=== PATIENT | female | born 1970 | race African-American/Black ===

== ENCOUNTER 2018-07-03 23:01 | Emergency (ER) | payer MEDICARE, MEDICAID ==
[~2018-07-03] VITALS: Ht 162.6 cm; Wt 96.8 kg
[~2018-07-03 23:01] MED LIST: CEPH500C5 PO
[2018-07-03] MEDS ORDERED: TETanus/Pertussis (Acell)/Diphther VAC/PF (Tdap-Adult) 0.5ml syringe IM ONE (23:50)
[2018-07-03] MEDS ORDERED: bacitracin 15gm ointment TP ONE (23:50)
[2018-07-04 00:12] VITALS: BP 152/83
== END 2018-07-04 00:15 | disposition home or self-care (01) ==
LOC: ER 23:01
DX: L02.811 Cutaneous abscess of head [any part, except face] (principal); I10 Essential (primary) hypertension; F17.200 Nicotine dependence, unspecified, uncomplicated; E11.9 Type 2 diabetes mellitus without complications; Z88.8 Allergy status to other drugs, medicaments and biological substances
CPT/HCPCS: 10060; 90471; 90715; 99283

== ENCOUNTER 2018-07-18 23:36 | Emergency (ER) | payer MEDICARE, MEDICAID ==
[~2018-07-18] VITALS: Ht 162.6 cm; Wt 85.5 kg
[2018-07-18] MEDS ORDERED: normal saline 1000ML IV soln IVB ONE (23:55)
[2018-07-18] MEDS ORDERED: ketorolac tromethamine 15mg/ml inj. IV ONE (23:55)
[2018-07-18] MEDS ORDERED: ondansetron/PF 4mg/2ml inj IV ONE (23:55)
[2018-07-19 00:18] LABS: CLARITY,URINE CLEAR (Clear); COLOR,URINE YELLOW (Yellow); GLUCOSE, URINE >=1000 mg/dl (Neg); KETONES,URINE NEGATIVE (Neg); LEUKOCYTE ESTERASE ,URINE NEGATIVE (Neg); NITRITES, URINE NEGATIVE (Neg); OCCULT BLOOD,URINE SMALL (Neg); PROTEIN,URINE NEGATIVE (Neg); UROBILINOGEN,URINE 0.2 E.U/dL (0.2-1.0)
[2018-07-19 00:20] LABS: URINE HCG NEGATIVE (NEG)
[2018-07-19 00:23] LABS: BASOPHILS # (AUTO) 0.1 X10'3 (0-0.2); BASOPHILS % (AUTO) 1.2 % (0-1); EOSINOPHILS # (AUTO) 0.1 X10'3 (0-0.9); EOSINOPHILS % (AUTO) 2.4 % (0-6); HEMATOCRIT 37.4 % (35.0-45.0); HEMOGLOBIN 12.3 g/dl (12.0-16.0); LYMPHOCYTES # (AUTO) 2.2 X10'3 (1.1-4.8); LYMPHOCYTES % (AUTO) 35.5 % (21-51); MEAN CORPUSCULAR HGB CONC 32.7 % (33.0-36.5); MEAN CORPUSCULAR VOLUME 85.5 FL (78-98); MEAN PLATELET VOLUME 8.3 FL (7.4-10.4); MONOCYTES # (AUTO) 0.3 X10'3 (0-0.9); MONOCYTES % (AUTO) 4.6 % (2-12); NEUTROPHILS # (AUTO) 3.4 X10'3 (1.8-7.7); NEUTROPHILS % (AUTO) 56.3 % (42-75); PLATELET COUNT 349 X10'3 (140-440); RED BLOOD COUNT 4.38 X10'6 (4.20-5.60); RED CELL DISTRIBUTION WIDTH 13.1 % (11.5-14.5); WHITE BLOOD COUNT 6.1 X10'3 (4.5-11.0)
[2018-07-19 00:24] LABS: UA COLLECTION TYPE CLN CATCH MIDSTREAM
[2018-07-19 00:25] LABS: BACTERIA,URINE FEW /HPF (Neg); SQUAMOUS EPITHELIAL CELL,UR FEW /LPF (FEW); WBC,URINE 0-4 /HPF (0-4)
[2018-07-19 00:32] LABS: ALANINE AMINOTRANSFERASE 37 U/L (12-78); ALBUMIN 3.3 G/DL (3.4-5.0); ALBUMIN/GLOBULIN RATIO 0.8 (1.1-1.5); ALKALINE PHOSPHATASE 158 IU/L (46-116); ANION GAP 9 (8-16); ASPARTATE AMINO TRANSFERASE 17 U/L (10-37); BILIRUBIN,TOTAL 0.1 MG/DL (0.1-1.0); CALCIUM 8.3 MG/DL (8.5-10.1); CHLORIDE 103 MMOL/L (99-107); CREATININE 1.22 MG/DL (0.40-0.90); GLUCOSE 310 MG/DL (70-104); LIPASE 232 U/L (73-393); SODIUM 140 MMOL/L (135-145); TOTAL CARBON DIOXIDE 28.5 MMOL/L (24-32); TOTAL PROTEIN 7.6 G/DL (6.4-8.2); eGFR 57 ML/MIN
[2018-07-19 00:38] LABS: BLOOD UREA NITROGEN 16 MG/DL (7-18); BUN/CREATININE RATIO 13.1 (6.6-38.0)
[2018-07-19 00:39] LABS: POTASSIUM 4.2 MMOL/L (3.5-5.1)
[2018-07-19] MEDS ORDERED: HYDR-4353 PO (01:00)
[2018-07-19] MEDS ORDERED: ONDA4TAB9 SL (01:00)
[2018-07-19] MEDS ORDERED: KETO10TA2 PO (01:00)
[2018-07-19 01:08] VITALS: BP 160/93
== END 2018-07-19 01:09 | disposition home or self-care (01) ==
LOC: ER 23:37
DX: N20.0 Calculus of kidney (principal); D25.9 Leiomyoma of uterus, unspecified; E11.65 Type 2 diabetes mellitus with hyperglycemia; M51.27 Other intervertebral disc displacement, lumbosacral region; N23 Unspecified renal colic; R19.7 Diarrhea, unspecified; I10 Essential (primary) hypertension; Z88.8 Allergy status to other drugs, medicaments and biological substances; Z90.49 Acquired absence of other specified parts of digestive tract; Z98.890 Other specified postprocedural states
CPT/HCPCS: 36415; 74176; 80053; 81001; 81025; 83690; 85025; 96361; 96374; 96375; 99285; J1885; J2405

== ENCOUNTER 2018-08-07 07:07 | Emergency (ER) | payer MEDICARE, MEDICAID ==
[~2018-08-07] VITALS: Ht 162.6 cm; Wt 84.0 kg
[~2018-08-07 07:07] MED LIST changes: +HYDR-4353 PO; +KETO10TA2 PO; +ONDA4TAB9 SL
[2018-08-07] MEDS ORDERED: CLIN300C85 PO (08:09)
[2018-08-07] MEDS ORDERED: clindamycin 150mg capsule PO ONE (08:10)
[2018-08-07] MEDS ORDERED: diphenhydrAMINE 25mg capsule PO ONE (08:10)
[2018-08-07 08:18] VITALS: BP 163/95
== END 2018-08-07 08:20 | disposition home or self-care (01) ==
LOC: ER 07:08
DX: L73.2 Hidradenitis suppurativa (principal); I10 Essential (primary) hypertension; E11.9 Type 2 diabetes mellitus without complications; Z87.442 Personal history of urinary calculi; Z90.49 Acquired absence of other specified parts of digestive tract; Z98.890 Other specified postprocedural states; Z88.8 Allergy status to other drugs, medicaments and biological substances
CPT/HCPCS: 99283; Q0163

== ENCOUNTER 2018-10-17 09:11 | Day surgery (SDC) | payer MEDICARE, MEDICAID ==
[2018-10-02 12:16] LABS: BASOPHILS % (AUTO) 0.4 % (0-1); EOSINOPHILS # (AUTO) 0.1 X10'3 (0-0.9); EOSINOPHILS % (AUTO) 2.7 % (0-6); LYMPHOCYTES # (AUTO) 2.2 X10'3 (1.1-4.8); LYMPHOCYTES % (AUTO) 42.3 % (21-51); MEAN CORPUSCULAR HEMOGLOBIN 27.8 PG (27.0-31.0); MEAN CORPUSCULAR HGB CONC 31.9 % (33.0-36.5); MEAN CORPUSCULAR VOLUME 87.3 FL (78-98); MONOCYTES # (AUTO) 0.3 X10'3 (0-0.9); MONOCYTES % (AUTO) 6.7 % (2-12); NEUTROPHILS # (AUTO) 2.5 X10'3 (1.8-7.7); NEUTROPHILS % (AUTO) 47.9 % (42-75); PRE OP HEMOGLOBIN 12.7 g/dL (12.0-16.0); PRE OP PLATELET COUNT 380 X10'3 (140-440); RED BLOOD COUNT 4.58 X10'6 (4.20-5.60); RED CELL DISTRIBUTION WIDTH 13.1 % (11.5-14.5)
[2018-10-02 12:30] LABS: ALBUMIN 3.5 G/DL (3.4-5.0); ALBUMIN/GLOBULIN RATIO 0.8 (1.1-1.5); ALKALINE PHOSPHATASE 139 IU/L (46-116); BLOOD UREA NITROGEN 12 MG/DL (7-18); BUN/CREATININE RATIO 11.7 (6.6-38.0); CALCIUM 9.1 MG/DL (8.5-10.1); CHLORIDE 103 MMOL/L (99-107); CREATININE 1.03 MG/DL (0.40-0.90); PRE OP ALT 30 U/L (30-65); PRE OP ANION GAP 7 (8-16); PRE OP AST 19 U/L (10-37); PRE OP BILIRUB, TOTAL 0.2 MG/DL (0.0-1.0); PRE OP POTASSIUM 3.8 MMOL/L (3.4-5.1); PRE OP SODIUM 140 MMOL/L (135-145); TOTAL CARBON DIOXIDE 29.8 MMOL/L (24-32); TOTAL PROTEIN 7.9 G/DL (6.4-8.2); eGFR 69 ML/MIN
[2018-10-02 12:31] LABS: PRE OP GLUCOSE 210 MG/DL (70-104)
[~2018-10-17] VITALS: Ht 162.6 cm; Wt 94.7 kg
[~2018-10-17 09:11] MED LIST changes: -CEPH500C5 PO; +CYCL-1 PO; +GLIP5TAB13 PO; +HYDR-3973 PO; -HYDR-4353 PO; +INSU100V9 SQ; -KETO10TA2 PO; +LIRA0.6P2 SQ; +LISI2.5T2 PO; +LORA-512 PO; -ONDA4TAB9 SL; +VANCOMYCIN INJ 1000 MG in NORMAL SALINE 250ml IV.SOLN IV ONE; +cefazolin/dext.iso 2gm/100 ML IV ONE; +famotidine 20mg tablet PO ONE; +ringers solution, lacted 1,000 ML IV SCH
[2018-10-17] MEDS ORDERED: LIDOcaine 1% (10mg/ml) 2ml vial ONE (09:24)
[2018-10-17 09:30] VITALS: BP 148/96
[2018-10-17] MEDS ORDERED: fentaNYL/PF 50MCG/1 ML 2ML syringe ONE (10:25)
[2018-10-17] MEDS ORDERED: MIDAZolam 1mg/ml 10ml vial ONE (10:25)
[2018-10-17] MEDS ORDERED: ketorolac trometh. 30mg/ml inj. ONE (10:26)
--- NOTE | 2018-10-17 10:30 | NUR ---
UNABLE TO START IV. DR. BECK AWARE. TO OR FOR IV START.
[2018-10-17 10:56] VITALS: BP 148/96
[2018-10-17] MEDS ORDERED: methylPREDNISolone sod succ 125mg/2ml vial ONE (11:06)
[2018-10-17] MEDS ORDERED: BUPIVAcaine/PF 2.5mg/ml (0.25%) 10ml vial ONE (11:06)
[2018-10-17] MEDS ORDERED: labetalol 20mg/4ml (5mg/ml) syringe IV PRN (11:25)
[2018-10-17] MEDS ORDERED: morphine 4 MG/ML inj SYRINge IV PRN ×2 (11:25)
[2018-10-17] MEDS ORDERED: ondansetron/PF 4mg/2ml inj IV PRN (11:25)
[2018-10-17] MEDS ORDERED: fentaNYL/PF 50MCG/1 ML 2ML syringe IV PRN ×2 (11:25)
[2018-10-17] MEDS ORDERED: hydrALAZINE 20mg/ml inj. IV PRN (11:25)
[2018-10-17] MEDS ORDERED: ringers solution, lacted 1,000 ML IV SCH (11:25)
[2018-10-17 12:04] VITALS: BP 111/88
--- NOTE | 2018-10-17 12:04 | NUR ---
Received from OR via [facility] , accompanied by Anesthesiologist EBONY and report given by Anesthesiolgist. PATIENT WITH MARYAN WRAP TO LEFT WRIST THAT IS CDI. DENIES PAIN. + CAP REFILL AND MOVEMENT. PWD. 24G PIV IN RIGHT FOOT. Addendum: 10/17/18 at 1216 by Curtis Lipscomb RN, RN Amended: Links added.
[2018-10-17 12:14] VITALS: BP 139/90
--- NOTE | 2018-10-17 12:21 | NUR ---
Rupa RODRIGUES IN RR Addendum: 10/17/18 at 1222 by Curtis Lipscomb RN RN Amended: Links added.
[2018-10-17 12:24] VITALS: BP 124/86
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
== END 2018-10-17 12:34 | disposition home or self-care (01) ==
LOC: PAS 09:11
PROVIDERS: ATTEND Orthopaedic Surgery
DX: S56.312A Strain of extensor or abductor muscles, fascia and tendons of left thumb at forearm level, initial encounter (principal); M65.4 Radial styloid tenosynovitis [de Quervain]; M65.312 Trigger thumb, left thumb; M65.322 Trigger finger, left index finger; I10 Essential (primary) hypertension; K21.9 Gastro-esophageal reflux disease without esophagitis; E78.5 Hyperlipidemia, unspecified; E66.01 Morbid (severe) obesity due to excess calories; J30.2 Other seasonal allergic rhinitis; E11.51 Type 2 diabetes mellitus with diabetic peripheral angiopathy without gangrene; E11.29 Type 2 diabetes mellitus with other diabetic kidney complication; G89.29 Other chronic pain; E11.42 Type 2 diabetes mellitus with diabetic polyneuropathy; Z88.6 Allergy status to analgesic agent; Z87.891 Personal history of nicotine dependence; Z79.82 Long term (current) use of aspirin; Z87.442 Personal history of urinary calculi; Z88.5 Allergy status to narcotic agent; Z68.35 Body mass index [BMI] 35.0-35.9, adult; Z79.4 Long term (current) use of insulin; Z79.891 Long term (current) use of opiate analgesic; Z90.49 Acquired absence of other specified parts of digestive tract; Z88.8 Allergy status to other drugs, medicaments and biological substances; Z98.890 Other specified postprocedural states; Z79.899 Other long term (current) drug therapy; Z83.3 Family history of diabetes mellitus; X58.XXXA Exposure to other specified factors, initial encounter; Y93.89 Activity, other specified; Y92.89 Other specified places as the place of occurrence of the external cause; Y99.8 Other external cause status
CPT/HCPCS: 25000; 25270; 26055; 36415; 80053; 82948; 85025; 93005; A6222; A6449; J0690; J1885; J2250; J2930; J3010; J3370; J3490; A7000; J7120

== ENCOUNTER 2018-10-24 03:22 | Outpatient (CLI) | payer MEDICARE, MEDICAID ==
[~2018-10-24 03:22] MED LIST changes: -VANCOMYCIN INJ 1000 MG in NORMAL SALINE 250ml IV.SOLN IV ONE; -cefazolin/dext.iso 2gm/100 ML IV ONE; -famotidine 20mg tablet PO ONE; -ringers solution, lacted 1,000 ML IV SCH
== END 2018-10-24 23:59 | disposition home or self-care (01) ==
LOC: DIABETIC 03:22
PROVIDERS: ATTEND Family Medicine
DX: E11.65 Type 2 diabetes mellitus with hyperglycemia (principal); I10 Essential (primary) hypertension; Z79.4 Long term (current) use of insulin; Z88.5 Allergy status to narcotic agent; Z88.6 Allergy status to analgesic agent; Z88.8 Allergy status to other drugs, medicaments and biological substances
CPT/HCPCS: G0108

== ENCOUNTER 2019-05-19 13:59 | Emergency (ER) | payer MEDICARE, MEDICAID ==
[~2019-05-19] VITALS: Ht 162.6 cm; Wt 96.8 kg
[2019-05-19 15:12] LABS: BASOPHILS # (AUTO) 0.1 X10'3 (0-0.2); BASOPHILS % (AUTO) 1.2 % (0-1); EOSINOPHILS # (AUTO) 0.1 X10'3 (0-0.9); EOSINOPHILS % (AUTO) 2.3 % (0-6); HEMATOCRIT 37.6 % (35.0-45.0); HEMOGLOBIN 12.5 g/dl (12.0-16.0); LYMPHOCYTES # (AUTO) 2.2 X10'3 (1.1-4.8); LYMPHOCYTES % (AUTO) 35.2 % (21-51); MEAN CORPUSCULAR HEMOGLOBIN 28.7 PG (27.0-31.0); MEAN CORPUSCULAR HGB CONC 33.3 g/dL (33.0-36.5); MEAN CORPUSCULAR VOLUME 86.3 FL (78-98); MEAN PLATELET VOLUME 7.2 FL (7.4-10.4); MONOCYTES # (AUTO) 0.4 X10'3 (0-0.9); MONOCYTES % (AUTO) 6.8 % (2-12); NEUTROPHILS # (AUTO) 3.4 X10'3 (1.8-7.7); NEUTROPHILS % (AUTO) 54.5 % (42-75); PLATELET COUNT 345 X10'3 (140-440); RED BLOOD COUNT 4.36 X10'6 (4.20-5.60); RED CELL DISTRIBUTION WIDTH 14.1 % (11.5-14.5); WHITE BLOOD COUNT 6.2 X10'3 (4.5-11.0)
[2019-05-19 15:26] LABS: ALANINE AMINOTRANSFERASE 29 U/L (12-78); ALBUMIN 3.4 G/DL (3.4-5.0); ALBUMIN/GLOBULIN RATIO 0.8 (1.1-1.5); ALKALINE PHOSPHATASE 159 IU/L (46-116); ANION GAP 10 (8-16); ASPARTATE AMINO TRANSFERASE 18 U/L (10-37); BILIRUBIN,TOTAL 0.2 MG/DL (0.1-1.0); BLOOD UREA NITROGEN 11 MG/DL (7-18); BUN/CREATININE RATIO 10.1 (6.6-38.0); CALCIUM 8.9 MG/DL (8.5-10.1); CHLORIDE 107 MMOL/L (99-107); CREATININE 1.09 MG/DL (0.40-0.90); GLUCOSE 207 MG/DL (70-104); POTASSIUM 3.4 MMOL/L (3.5-5.1); SODIUM 144 MMOL/L (135-145); TOTAL CARBON DIOXIDE 27.5 MMOL/L (24-32); TOTAL PROTEIN 7.6 G/DL (6.4-8.2); eGFR 64 ML/MIN
[2019-05-19 15:43] LABS: PARTIAL THROMBOPLASTIN TIME 29 SECONDS (22-32)
[2019-05-19 16:12] VITALS: BP 132/87
== END 2019-05-19 16:14 | disposition home or self-care (01) ==
LOC: ER 14:00
DX: R00.0 Tachycardia, unspecified (principal); I10 Essential (primary) hypertension; E11.9 Type 2 diabetes mellitus without complications; Z87.442 Personal history of urinary calculi; Z90.49 Acquired absence of other specified parts of digestive tract; Z98.890 Other specified postprocedural states; Z88.5 Allergy status to narcotic agent; Z88.8 Allergy status to other drugs, medicaments and biological substances; Z79.4 Long term (current) use of insulin; Z79.899 Other long term (current) drug therapy
CPT/HCPCS: 36415; 71045; 80053; 84484; 85025; 85610; 85730; 93005; 99284

== ENCOUNTER 2019-12-31 22:53 | Emergency (ER) | payer MEDICARE, MEDICAID ==
[~2019-12-31] VITALS: Ht 162.6 cm; Wt 95.0 kg
[2019-12-31] MEDS ORDERED: ketorolac tromethamine 15mg/ml inj. IV ONE (23:10)
[2019-12-31] MEDS ORDERED: normal saline 1000ML IV soln IVB ONE (23:10)
[2019-12-31] MEDS ORDERED: ondansetron/PF 4mg/2ml inj IV ONE (23:10)
[2019-12-31 23:30] LABS: BASOPHILS % (AUTO) 0.6 % (0-1); EOSINOPHILS # (AUTO) 0.2 X10'3 (0-0.9); EOSINOPHILS % (AUTO) 3.8 % (0-6); HEMATOCRIT 39.6 % (35.0-45.0); LYMPHOCYTES # (AUTO) 2.4 X10'3 (1.1-4.8); LYMPHOCYTES % (AUTO) 39.7 % (21-51); MEAN CORPUSCULAR HEMOGLOBIN 28.1 PG (27.0-31.0); MEAN CORPUSCULAR HGB CONC 32.7 g/dL (33.0-36.5); MEAN CORPUSCULAR VOLUME 85.9 FL (78-98); MEAN PLATELET VOLUME 7.9 FL (7.4-10.4); MONOCYTES # (AUTO) 0.6 X10'3 (0-0.9); MONOCYTES % (AUTO) 9.4 % (2-12); NEUTROPHILS # (AUTO) 2.8 X10'3 (1.8-7.7); NEUTROPHILS % (AUTO) 46.5 % (42-75); PLATELET COUNT 342 X10'3 (140-440); RED BLOOD COUNT 4.61 X10'6 (4.20-5.60); RED CELL DISTRIBUTION WIDTH 14.1 % (11.5-14.5); WHITE BLOOD COUNT 6.1 X10'3 (4.5-11.0)
[2019-12-31 23:36] LABS: ALANINE AMINOTRANSFERASE 31 U/L (12-78); ALBUMIN 3.7 G/DL (3.4-5.0); ALBUMIN/GLOBULIN RATIO 0.8 (1.1-1.5); ALKALINE PHOSPHATASE 164 IU/L (46-116); ANION GAP 6 (8-16); ASPARTATE AMINO TRANSFERASE 28 U/L (10-37); BILIRUBIN,TOTAL 0.2 MG/DL (0.1-1.0); BLOOD UREA NITROGEN 18 MG/DL (7-18); BUN/CREATININE RATIO 15.1 (6.6-38.0); CALCIUM 9.5 MG/DL (8.5-10.1); CHLORIDE 104 MMOL/L (99-107); CREATININE 1.19 MG/DL (0.40-0.90); GLUCOSE 170 MG/DL (70-104); POTASSIUM 3.7 MMOL/L (3.5-5.1); SODIUM 141 MMOL/L (135-145); TOTAL CARBON DIOXIDE 31.1 MMOL/L (24-32); TOTAL PROTEIN 8.5 G/DL (6.4-8.2); eGFR 58 ML/MIN
[2019-12-31 23:50] LABS: CLARITY,URINE CLEAR (Clear); COLOR,URINE STRAW (Yellow); GLUCOSE, URINE 100 mg/dl (Neg); KETONES,URINE NEGATIVE (Neg); LEUKOCYTE ESTERASE ,URINE NEGATIVE (Neg); NITRITES, URINE NEGATIVE (Neg); OCCULT BLOOD,URINE SMALL (Neg); PROTEIN,URINE 100 mg/dl (Neg); UROBILINOGEN,URINE 0.2 E.U/dL (0.2-1.0)
[2020-01-01 00:06] LABS: UA COLLECTION TYPE CLN CATCH MIDSTREAM
[2020-01-01 00:08] LABS: BACTERIA,URINE NONE SEEN /HPF (Neg); SQUAMOUS EPITHELIAL CELL,UR FEW /LPF (FEW); WBC,URINE NONE SEEN /HPF (0-4)
[2020-01-01] MEDS ORDERED: IBUP-1985 PO (00:25)
[2020-01-01] MEDS ORDERED: FLO0.4C PO (00:25)
[2020-01-01 00:36] VITALS: BP 153/66
== END 2020-01-01 00:38 | disposition home or self-care (01) ==
LOC: ER 22:54
DX: N13.2 Hydronephrosis with renal and ureteral calculous obstruction (principal); R11.2 Nausea with vomiting, unspecified; I10 Essential (primary) hypertension; E11.9 Type 2 diabetes mellitus without complications; Z90.49 Acquired absence of other specified parts of digestive tract; Z98.890 Other specified postprocedural states; Z88.8 Allergy status to other drugs, medicaments and biological substances; Z88.6 Allergy status to analgesic agent; Z88.5 Allergy status to narcotic agent; Z79.4 Long term (current) use of insulin
CPT/HCPCS: 36415; 74176; 80053; 81001; 85025; 93005; 96361; 96374; 96375; 99285; J1885; J2405; J7030; 81003

== ENCOUNTER 2020-11-03 09:49 | Emergency (ER) | payer MEDICARE, MEDICAID ==
[~2020-11-03] VITALS: Ht 162.6 cm; Wt 96.2 kg
[~2020-11-03 09:49] MED LIST changes: +IBUP-1985 PO
--- NOTE | 2020-11-03 10:40 | NUR ---
PT TO XRAY
[2020-11-03 11:32] LABS: ALANINE AMINOTRANSFERASE 37 U/L (12-78); ALBUMIN 3.6 G/DL (3.4-5.0); ALBUMIN/GLOBULIN RATIO 0.8 (1.1-1.5); ALKALINE PHOSPHATASE 140 IU/L (46-116); ANION GAP 8 (8-16); ASPARTATE AMINO TRANSFERASE 32 U/L (10-37); BILIRUBIN,TOTAL 0.2 MG/DL (0.1-1.0); BLOOD UREA NITROGEN 16 MG/DL (7-18); BUN/CREATININE RATIO 16.7 (6.6-38.0); CALCIUM 9.4 MG/DL (8.5-10.1); CHLORIDE 105 MMOL/L (99-107); CREATININE 0.96 MG/DL (0.40-0.90); GLUCOSE 115 MG/DL (70-104); POTASSIUM 4.3 MMOL/L (3.5-5.1); SODIUM 142 MMOL/L (135-145); TOTAL CARBON DIOXIDE 28.7 MMOL/L (24-32); eGFR 74 ML/MIN
[2020-11-03 11:38] LABS: BASOPHILS % (AUTO) 0.7 % (0-1); EOSINOPHILS # (AUTO) 0.2 X10'3 (0-0.9); HEMATOCRIT 41.9 % (35.0-45.0); LYMPHOCYTES # (AUTO) 1.7 X10'3 (1.1-4.8); LYMPHOCYTES % (AUTO) 32.6 % (21-51); MEAN CORPUSCULAR HEMOGLOBIN 29.1 PG (27.0-31.0); MEAN CORPUSCULAR HGB CONC 33.3 g/dL (33.0-36.5); MEAN CORPUSCULAR VOLUME 87.4 FL (78-98); MEAN PLATELET VOLUME 8.2 FL (7.4-10.4); MONOCYTES # (AUTO) 0.4 X10'3 (0-0.9); MONOCYTES % (AUTO) 8.4 % (2-12); NEUTROPHILS # (AUTO) 2.9 X10'3 (1.8-7.7); NEUTROPHILS % (AUTO) 55.3 % (42-75); PLATELET COUNT 341 X10'3 (140-440); RED BLOOD COUNT 4.79 X10'6 (4.20-5.60); RED CELL DISTRIBUTION WIDTH 13.6 % (11.5-14.5); WHITE BLOOD COUNT 5.3 X10'3 (4.5-11.0)
[2020-11-03] MEDS ORDERED: iohexol 300mg/ml 100ml inj. ONE (11:42)
--- NOTE | 2020-11-03 12:10 | NUR ---
PT BACK FROM CT
[2020-11-03] MEDS ORDERED: ondansetron/PF 4mg/2ml inj IV ONE (12:25)
[2020-11-03] MEDS ORDERED: HYDROcodone/acetaminophen 10/325mg tab PO ONE (12:25)
--- NOTE | 2020-11-03 12:31 | NUR ---
PT C/O LEFT HIP PAIN, DR. RAMOS MADE AWARE, RECEIVED VERBAL ORDERS FOR 4MG ZOFRAN IV PUSH, AND NORCO 10MG PO. PT STATES SHE HAS HAD NORCO BEFORE AND HAS NO REACTION TO THE MED.
[2020-11-03] MEDS ORDERED: MESSAGE TO PHARMACY PO NR (12:40)
[2020-11-03 13:11] VITALS: BP 135/79
== END 2020-11-03 13:13 | disposition home or self-care (01) ==
LOC: ER 09:49
DX: S70.11XA Contusion of right thigh, initial encounter (principal); S50.01XA Contusion of right elbow, initial encounter; M54.5 Low back pain; M25.552 Pain in left hip; R10.30 Lower abdominal pain, unspecified; I10 Essential (primary) hypertension; E11.9 Type 2 diabetes mellitus without complications; Z87.442 Personal history of urinary calculi; Z90.49 Acquired absence of other specified parts of digestive tract; Z98.890 Other specified postprocedural states; Z72.89 Other problems related to lifestyle; Z88.8 Allergy status to other drugs, medicaments and biological substances; Z88.5 Allergy status to narcotic agent; Z88.6 Allergy status to analgesic agent; Z79.4 Long term (current) use of insulin; Z79.899 Other long term (current) drug therapy; X58.XXXA Exposure to other specified factors, initial encounter; Y93.89 Activity, other specified; Y92.89 Other specified places as the place of occurrence of the external cause; Y99.8 Other external cause status
CPT/HCPCS: 36415; 73502; 74177; 80053; 85025; 85610; 96374; 99285; J2405; Q9967

== ENCOUNTER → 2022-06-27 | Emergency (ER) | payer BC, MEDICAID ==
[~2022-06-27] VITALS: Ht 162.6 cm; Wt 96.4 kg
[~2022-06-27] MED LIST changes: +LISI2.5T14 PO; -LISI2.5T2 PO
[2022-06-27 16:10] VITALS: BP 180/99
== END | disposition home or self-care (01) ==
LOC: ER 15:06
DX: M79.605 Pain in left leg (principal); M79.662 Pain in left lower leg; I10 Essential (primary) hypertension; E11.9 Type 2 diabetes mellitus without complications; Z87.442 Personal history of urinary calculi; Z90.49 Acquired absence of other specified parts of digestive tract; Z98.890 Other specified postprocedural states; Z72.89 Other problems related to lifestyle; Z88.6 Allergy status to analgesic agent; Z88.5 Allergy status to narcotic agent; Z88.8 Allergy status to other drugs, medicaments and biological substances; Z79.4 Long term (current) use of insulin; Z79.899 Other long term (current) drug therapy
CPT/HCPCS: 93005; 99283

== ENCOUNTER 2023-03-06 09:46 | Emergency (ER) | payer BC, MEDICAID ==
[~2023-03-06] VITALS: Ht 162.6 cm; Wt 90.9 kg
[2023-03-06 09:48] VITALS: BP 182/90
[2023-03-06] MEDS ORDERED: ONDA4TAB12 PO (10:49)
[2023-03-06] MEDS ORDERED: AMOX-117 PO (10:49)
== END 2023-03-06 10:54 | disposition home or self-care (01) ==
LOC: ER 09:46
DX: J02.9 Acute pharyngitis, unspecified (principal); J40 Bronchitis, not specified as acute or chronic; R11.2 Nausea with vomiting, unspecified; I10 Essential (primary) hypertension; E11.9 Type 2 diabetes mellitus without complications; Z88.5 Allergy status to narcotic agent; Z88.8 Allergy status to other drugs, medicaments and biological substances; Z90.49 Acquired absence of other specified parts of digestive tract
CPT/HCPCS: 99283

== ENCOUNTER 2023-04-19 21:38 | Emergency (ER) | payer BC, MEDICAID ==
[~2023-04-19] VITALS: Ht 162.6 cm; Wt 94.4 kg
[~2023-04-19 21:38] MED LIST changes: +ONDA4TAB12 PO
[2023-04-19 22:58] LABS: BASOPHILS % (AUTO) 0.4 % (0-1); EOSINOPHILS # (AUTO) 0.1 X10'3 (0-0.9); EOSINOPHILS % (AUTO) 1.7 % (0-6); HEMATOCRIT 42.5 % (35.0-45.0); HEMOGLOBIN 14.3 g/dl (12.0-16.0); LYMPHOCYTES % (AUTO) 25.6 % (21-51); MEAN CORPUSCULAR HEMOGLOBIN 29.4 PG (27.0-31.0); MEAN CORPUSCULAR HGB CONC 33.5 g/dL (33.0-36.5); MEAN CORPUSCULAR VOLUME 87.7 FL (78-98); MEAN PLATELET VOLUME 7.5 FL (7.4-10.4); MONOCYTES # (AUTO) 0.4 X10'3 (0-0.9); MONOCYTES % (AUTO) 5.5 % (2-12); NEUTROPHILS # (AUTO) 5.1 X10'3 (1.8-7.7); NEUTROPHILS % (AUTO) 66.8 % (42-75); PLATELET COUNT 346 X10'3 (140-440); RED BLOOD COUNT 4.85 X10'6 (4.20-5.60); WHITE BLOOD COUNT 7.7 X10'3 (4.5-11.0)
[2023-04-19 23:00] LABS: CLARITY,URINE CLEAR (Clear); COLOR,URINE STRAW (Yellow); GLUCOSE, URINE >=1000 mg/dl (Neg); KETONES,URINE NEGATIVE (Neg); LEUKOCYTE ESTERASE ,URINE NEGATIVE (Neg); NITRITES, URINE NEGATIVE (Neg); OCCULT BLOOD,URINE SMALL (Neg); PROTEIN,URINE 100 mg/dl (Neg); UROBILINOGEN,URINE 0.2 E.U/dL (0.2-1.0)
[2023-04-19 23:07] LABS: UA COLLECTION TYPE CLN CATCH MIDSTREAM
[2023-04-19 23:08] LABS: BACTERIA,URINE NONE SEEN /HPF (Neg); RBC,URINE 20-50 /HPF (0-2); SQUAMOUS EPITHELIAL CELL,UR MODERATE /LPF (FEW)
[2023-04-19 23:09] LABS: WBC,URINE 0-4 /HPF (0-4)
[2023-04-19 23:11] LABS: ALANINE AMINOTRANSFERASE 36 U/L (12-78); ALBUMIN 3.8 G/DL (3.4-5.0); ALBUMIN/GLOBULIN RATIO 0.8 (1.1-1.5); ALKALINE PHOSPHATASE 142 IU/L (46-116); ANION GAP 9 (8-16); ASPARTATE AMINO TRANSFERASE 18 U/L (10-37); BILIRUBIN,TOTAL 0.3 MG/DL (0.1-1.0); BLOOD UREA NITROGEN 14 MG/DL (7-18); BUN/CREATININE RATIO 12.5 (10.0-20.0); CALCIUM 9.4 MG/DL (8.5-10.1); CHLORIDE 100 MMOL/L (99-107); CREATININE 1.12 MG/DL (0.40-0.90); GLUCOSE 319 MG/DL (70-104); LIPASE 372 U/L (73-393); POTASSIUM 3.9 MMOL/L (3.5-5.1); SODIUM 139 MMOL/L (135-145); TOTAL CARBON DIOXIDE 29.7 MMOL/L (24-32); TOTAL PROTEIN 8.3 G/DL (6.4-8.2); eGFR 61 ML/MIN
[2023-04-19] MEDS ORDERED: normal saline 1000ml 1,000 ML IV ONE (23:40)
[2023-04-19] MEDS ORDERED: insulin regular, human 10 units/0.1 ml syringe IV ONE (23:40)
[2023-04-19] MEDS ORDERED: ondansetron/PF 4mg/2ml inj IV ONE (23:40)
[2023-04-19] MEDS ORDERED: ketorolac trometh. 30mg/ml inj. IV ONE (23:40)
--- NOTE | 2023-04-20 00:08 | NUR ---
MD MADE AWARE GLUCOSE 277; NON ADMIN INSULIN, RECHECK BG AFTER 1LNS BOLUS.
[2023-04-20] MEDS ORDERED: tamsulosin 0.4mg capsule PO ONE (00:55)
[2023-04-20 01:06] VITALS: BP 148/92; PULSE 118; O2SAT 100
--- NOTE | 2023-04-20 01:10 | NUR ---
DR WILKINS NOTIFIED OF HIGH BLOOD GLUCOSE. PT TO TAKE HOME DIABETES MEDICATION. PT STILL OF TO D/C PER DR WILKINS.
[2023-04-20 01:14] VITALS: RESP 18
[2023-04-20 01:15] VITALS: TEMP 97.8
[2023-04-21] MEDS ORDERED: HYDR-3973 PO (03:49)
[2023-04-21] MEDS ORDERED: FLO0.4C PO (03:49)
[2023-04-21] MEDS ORDERED: ONDA8TAB13 PO (03:49)
== END 2023-04-20 01:12 | disposition home or self-care (01) ==
LOC: ER 21:39
DX: N20.0 Calculus of kidney (principal); I10 Essential (primary) hypertension; E11.9 Type 2 diabetes mellitus without complications; Z88.8 Allergy status to other drugs, medicaments and biological substances; Z88.5 Allergy status to narcotic agent; Z79.84 Long term (current) use of oral hypoglycemic drugs; Z79.899 Other long term (current) drug therapy; Z90.49 Acquired absence of other specified parts of digestive tract
CPT/HCPCS: 36415; 80053; 81001; 82948; 83690; 85025; 96361; 96374; 96375; 99284; J1885; J2405; J7030

== ENCOUNTER 2023-04-23 17:24 | Emergency (ER) | payer BC, MEDICAID ==
[~2023-04-23] VITALS: Ht 162.6 cm; Wt 95.5 kg
[~2023-04-23 17:24] MED LIST changes: +FLO0.4C PO; +ONDA8TAB13 PO
[2023-04-23 18:52] VITALS: BP 190/103; PULSE 127; RESP 16; TEMP 99.3; O2SAT 99
[2023-04-23 19:17] LABS: COLOR,URINE YELLOW (Yellow); GLUCOSE, URINE 500 mg/dl (Neg); KETONES,URINE NEGATIVE (Neg); LEUKOCYTE ESTERASE ,URINE NEGATIVE (Neg); NITRITES, URINE NEGATIVE (Neg); OCCULT BLOOD,URINE TRACE-INTACT (Neg); PH,URINE 7.5 (4.8-8.0); PROTEIN,URINE 30 mg/dl (Neg)
[2023-04-23 19:21] LABS: UA COLLECTION TYPE CLN CATCH MIDSTREAM
[2023-04-23 19:22] LABS: CLARITY,URINE SLIGHTLY CLOUDY (Clear)
[2023-04-23 19:27] LABS: AMORPHOUS PHOSPHATES 2+; BACTERIA,URINE FEW /HPF (Neg); COARSE GRANULAR CAST 0-3 /LPF (NEGATIVE); MUCUS STRANDS FEW /LPF (Neg); SQUAMOUS EPITHELIAL CELL,UR FEW /LPF (FEW); WBC,URINE 0-4 /HPF (0-4)
[2023-04-23 21:00] LABS: BASOPHILS % (AUTO) 0.4 % (0-1); EOSINOPHILS # (AUTO) 0.1 X10'3 (0-0.9); EOSINOPHILS % (AUTO) 0.9 % (0-6); HEMATOCRIT 42.1 % (35.0-45.0); HEMOGLOBIN 13.7 g/dl (12.0-16.0); LYMPHOCYTES # (AUTO) 1.5 X10'3 (1.1-4.8); LYMPHOCYTES % (AUTO) 16.8 % (21-51); MEAN CORPUSCULAR HEMOGLOBIN 29.1 PG (27.0-31.0); MEAN CORPUSCULAR HGB CONC 32.5 g/dL (33.0-36.5); MEAN CORPUSCULAR VOLUME 89.5 FL (78-98); MEAN PLATELET VOLUME 7.9 FL (7.4-10.4); MONOCYTES # (AUTO) 0.8 X10'3 (0-0.9); MONOCYTES % (AUTO) 9.1 % (2-12); NEUTROPHILS # (AUTO) 6.5 X10'3 (1.8-7.7); NEUTROPHILS % (AUTO) 72.8 % (42-75); PLATELET COUNT 285 X10'3 (140-440); RED BLOOD COUNT 4.71 X10'6 (4.20-5.60); RED CELL DISTRIBUTION WIDTH 13.7 % (11.5-14.5)
--- NOTE | 2023-04-23 21:10 | NUR ---
LAB CALLED AND SAID PT'S BLOOD WAS HEMOLYZED, PT'S NURSE GUS BROWNING WAS NOTIFIED
[2023-04-23 22:11] LABS: ALANINE AMINOTRANSFERASE 42 U/L (12-78); ALBUMIN 3.4 G/DL (3.4-5.0); ALBUMIN/GLOBULIN RATIO 0.7 (1.1-1.5); ALKALINE PHOSPHATASE 170 IU/L (46-116); ANION GAP 11 (8-16); ASPARTATE AMINO TRANSFERASE 28 U/L (10-37); BILIRUBIN,TOTAL 0.3 MG/DL (0.1-1.0); BLOOD UREA NITROGEN 22 MG/DL (7-18); CALCIUM 9.4 MG/DL (8.5-10.1); CHLORIDE 102 MMOL/L (99-107); CREATININE 1.47 MG/DL (0.40-0.90); GLUCOSE 178 MG/DL (70-104); LIPASE < 50 U/L (73-393); POTASSIUM 3.9 MMOL/L (3.5-5.1); SODIUM 140 MMOL/L (135-145); TOTAL CARBON DIOXIDE 27.3 MMOL/L (24-32); TOTAL PROTEIN 8.3 G/DL (6.4-8.2); eGFR 45 ML/MIN
[2023-04-23] MEDS ORDERED: ONDA4TAB12 PO (22:16)
[2023-04-23] MEDS ORDERED: FLO0.4C PO (22:16)
[2023-04-23] MEDS ORDERED: OXYC-481 PO (22:16)
== END 2023-04-23 22:34 | disposition home or self-care (01) ==
LOC: ER 17:24
DX: N20.0 Calculus of kidney (principal); R35.0 Frequency of micturition; I10 Essential (primary) hypertension; E11.9 Type 2 diabetes mellitus without complications; Z88.8 Allergy status to other drugs, medicaments and biological substances; Z88.5 Allergy status to narcotic agent; Z79.82 Long term (current) use of aspirin; Z90.49 Acquired absence of other specified parts of digestive tract
CPT/HCPCS: 36415; 74176; 80053; 81001; 83690; 85025; 99284